=== PATIENT | male | born 1975 | race Caucasian/White ===

== ENCOUNTER → 2017-02-25 | Day surgery (SDC) | payer OTHER ==
[~2017-02-25] MED LIST: BACITRACIN IM FOR SOLN 50,000 UNIT VIAL ONE; BUPIVACAINE HCL PF 0.25% 30 ML VIAL ONE; BUPIVACAINE/EPINEPHRINE 0.25% PF 30 ML VIAL ONE; IBUP800T23 PO; KETOROLAC TROMETHAMINE 30 MG/ML (IVP) VIAL IV PUSH ONE; LACTATED RINGER'S 1000 ML INJ 1,000 ML ONE; LIDOCAINE 2%/EPINEPHrine PF 1:200,000 20ML SDV ONE; MIDAZOLAM HCL 2 MG/2 ML VIAL ONE; ONDANSETRON HCL 4 MG/2 ML VIAL IV PUSH ONE; PERC5TAB12 PO; PROPOFOL 200 MG/20 ML AMP IV ONE; SODIUM CHLORIDE 0.9% INJ 10 ML ONE; ceFAZolin INJ 1,000 MG VIAL ONE
--- NOTE | 2017-02-25 13:09 | TN ---
cc: FER ESCALANTE M.D. DATE OF SURGERY: 02/25/2017. PREOPERATIVE DIAGNOSIS 1. Exostosis base of right fifth metatarsal 2. Painful retained hardware right foot. POSTOPERATIVE DIAGNOSIS: 1. Exostosis base of right fifth metatarsal 2. Painful retained hardware right foot. PROCEDURE PREFORMED: 1. Excision exostosis secondary to reactive bone formation from the base of the right fifth metatarsal post operatively. 2. Removal of 4.0 cannulated screw right fifth metatarsal (intramedullary screw). SURGEON Fer Escalante MD ANESTHESIA: Anesthesia was general via laryngeal mask augmented by local infiltration. TOURNIQUET TIME: Tourniquet time was 24 minutes and 300 mmHg. FLUIDS: Fluid replacement was 250 cc of crystalloid. SPECIMENS: No specimens were sent. The screw was returned to the patient as a souvenir per his request. COUNTS: All counts were correct. DRAINS: No drains were utilized. COMPLICATIONS: There were no intraoperative complications. INDICATIONS FOR PROCEDURE Mr. 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 Manuelito trujillo in July 2015. He ultimately went on to heal the fracture but began experiencing problems with hardware related pain at the tip of the fifth metatarsal as well as reactive bone formation that causes some prominence on the skin as well as some difficulty with shoe wear. As a result his persistent symptoms and evidence radiographically of healing. He is being taken the operating room for hardware removal and plan on evaluating whether or not exostosis even present clinically and if the bone required excision, he was aware of the risks, benefits and potential complications of the procedure and full written informed consent was obtained. DESCRIPTION OF PROCEDURE After the patient verbally identified in the holding area correctly marked his right foot for surgery and I had initialed it as well. He was then given 1 gram of intravenous Ancef as prophylactic antibiotic. He was taken to the operating suite was placed under general laryngeal mask anesthetic by Dr. Harvey. I went ahead and applied a very well-padded thigh-high tourniquet on the right leg and he was prepped with alcohol and Hibiclens and draped in the normal standard fashion including the use of an impervious stockinette from the foot all the way up to the calf. Please note that an opening over the lateral aspect of the foot was cut through the drapes and the toes were never exposed to the surgical field. Next, a time-out was held confirming the right leg was the appropriate surgical site. The team was in agreement and case was now begun. The right leg was elevated and then exsanguinated with an Ross wrap and the tourniquet was raised to 300 mmHg. He had a previous 3-cm incision along the base of the fifth metatarsal on I opened the proximal 1.5 cm the subcutaneous tissue was divided as soon as I got through the deeper tissues significant thickened tissue was identified consistent with scar formation and then bone formation was encountered as well. The bone was somewhat outside of the area where I would anticipate would be present along the base of the fifth metatarsal, it is actually even more superficial than the periosteum this was either due to calcification that developed as a result of seating or due to trauma. I went ahead and resected some of his extraosseous calcification and as I further dissected sub periosteally, I encountered the counter sunk soon 4.0 cannulated screw I was able to dissect around the head of the screw quite well. It did require excision of a further amount of bone in order to fully identify it and the hollow portion of the screw then had the soft tissue removed from it. I went ahead and used a four-point of cannulated screw medical delivery driver and was able to engage the screw and I progressively back it out without difficulty. There was no evidence of any significant abernathy of any anything that looked concerning for infection and a small amount of bloody drainage was encountered. Clinically there did not appear to be any evidence of motion at the fracture site and although I did not thoroughly sub periosteally dissect it. It was palpable and I did not see anything that was concerning for any micromotion. I went ahead and use rongeurs to excise further amounts of bone that were prominent and then the use of rasp to smooth the surfaces at this time the wound was irrigated with antibiotic-containing saline. There was no evidence of any further bony debris to be excised and the attachment site of the peroneus brevis tendons were deeper to the area where the screw entered and where the hypertrophic bone formation was. Care was taken to preserve the attachment quite well. Please also note that during the approach to the lateral side of the foot no branches of the lesser saphenous nerve or sterile nerve were identified on the dorsal surface of the foot. At this time I went ahead and close the subcutaneous tissue with 2-0 Vicryl inverted subcutaneous stitches and the skin everted in close quite well and then the skin was then closed with león. He was injected with 10 cc of a 50/50 mixture of 0.25% Marcaine plain and 2% lidocaine with epinephrine. Care was taken to avoid any type of injection in and around the toes or in the webspace to prevent problems with vascular vasospasm. He was then dressed with Xeroform, 4x4s, Tiffanie and an Ross wrap. The tourniquet was let down and brisk return of capillary refill. There is no evidence of any significant bleeding. He was awoken from anesthesia and taken to recovery in stable condition. Appropriate postoperative orders have written. Fer Escalante MD Electronically Signed Fer Escalante MD RADIOLOGY REPORT:INTRAOPERATIVE Right Foot (2 views) Indication:S/P HWR and debridement of exostosis Performed by RT and Dr. Reeves X-ray report, intraoperative fluoroscopic images were obtained of the right foot. Immediately following hardware removal. This include AP and lateral images the images revealed no evidence of refracture of the fifth metatarsal bone and interval removal of a intramedullary screw along the shaft of the fifth metatarsal is appreciated. There does not appear to be any evidence of any iatrogenic injury. The fracture of the metatarsal appers to be healed. Fer Escalante MD Electronically Signed Fer Escalante MD [facility]/ /11:19 AM /12:53 PM [facility]
== END | disposition home or self-care (01) ==
LOC: ESDC 08:34
PROVIDERS: ATTEND Orthopaedic Surgery Sports Medicine
DX: M25.774 Osteophyte, right foot (principal); T84.84XA Pain due to internal orthopedic prosthetic devices, implants and grafts, initial encounter
CPT/HCPCS: 01480; 20680; 28122; 73620; 76000; J0690; J1885; J2250; J2405; J3010; J7120